=== PATIENT | male | born 1955 | race Caucasian/White ===

== ENCOUNTER → 2017-01-01 | Outpatient (CLI) | payer BC ==
--- NOTE | 2017-01-01 11:02 | RAD ---
EXAM DESCRIPTION: Hand,Right 3 Views CLINICAL HISTORY: 61 years Male, PAIN COMPARISON: None. FINDINGS: 3 views of the right hand show a tiny calcification along the dorsal aspect of the third DIP joint which is seen only on the lateral view but does not appear acute. No acute fracture or malalignment is seen. There is joint space narrowing and productive change involving several interphalangeal joints, slightly worse at the second DIP joint. No radiopaque foreign body or soft tissue gas. IMPRESSION: Mild to moderate polyarticular degenerative change, but no acute right hand abnormality. Electronically signed by: Jayden Nolasco MD 01/01/2017 11:01 AM CDT Workstation: [facility]
== END | disposition home or self-care (01) ==
LOC: RAD 09:09
PROVIDERS: ATTEND Orthopaedic Surgery
DX: M79.641 Pain in right hand (principal)

== ENCOUNTER → 2017-01-09 | Outpatient (CLI) | payer BC | END | disposition home or self-care (01) | LOC: GMAB 10:37 | PROVIDERS: ATTEND Family Medicine | DX: Z00.00 Encounter for general adult medical examination without abnormal findings (principal); G45.9 Transient cerebral ischemic attack, unspecified ==

== ENCOUNTER → 2017-05-06 | Outpatient (CLI) | payer BC | END | disposition home or self-care (01) | LOC: GMAB 17:51 | PROVIDERS: ATTEND Family Medicine | DX: R30.0 Dysuria (principal) ==

== ENCOUNTER → 2017-09-17 | Outpatient (CLI) | payer BC | LOC: GMAB 16:41 | PROVIDERS: ATTEND Family Medicine | DX: R12 Heartburn (principal) ==

== ENCOUNTER → 2017-09-20 | Outpatient (CLI) | payer BC, OTHER ==
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
== END ==
LOC: MRI 08:00
PROVIDERS: ATTEND Family Medicine
DX: R12 Heartburn (principal); R51 Headache

== ENCOUNTER → 2018-10-02 | Outpatient (CLI) | payer BC | LOC: GMAE 16:45 | PROVIDERS: ATTEND Family Medicine | DX: R53.82 Chronic fatigue, unspecified (principal) ==

== ENCOUNTER → 2018-10-29 | Outpatient (CLI) | payer BC ==
--- NOTE | 2018-10-29 11:33 | US ---
EXAM DESCRIPTION: Venous,Lower Extremity LT: ULTRASOUND. CLINICAL HISTORY: LOCALIZED EDEMA. Left lower extremity. COMPARISON: None Available. TECHNIQUE: Hart-scale and doppler sonographic evaluation of the deep venous system of the left lower extremity. FINDINGS: Doppler evaluation shows normal color flow and normal phasicity and augmentation of the left common femoral vein, femoral vein, popliteal vein, peroneal, and posterior tibial vein. The left lower extremity deep veins were completely compressible; normal occlusion with transducer pressure. Hart-scale survey showed no echogenic thrombus within these veins. The superficial left greater saphenous vein contains echogenic clot from the mid aspect of the knee with clot also seen in the superficial lesser saphenous vein from the knee to the ankle. Decreased venous waveforms and the veins were not compressible with the transducer. IMPRESSION: 1. Duplex ultrasound evaluation of the left lower extremity deep venous system showing no evidence of thrombosis. 2. Thrombosis from the superficial mid left greater saphenous vein through the superficial left lesser saphenous vein to the ankle. This is usually not clinically significant. CRITICAL COMMUNICATION: The findings were discussed directly by phone, by Ms. Cheryle Lundy, primary care nurse, with Dr. Corley's medical sales associate, Gauri, at approximately 1110 hours, on October 29, 2018. Electronically signed by: Sarbjit Gupta MD 10/29/2018 11:29 AM CDT
== END ==
LOC: US 10:12
PROVIDERS: ATTEND Family Medicine
DX: I82.812 Embolism and thrombosis of superficial veins of left lower extremity (principal)

== ENCOUNTER → 2018-11-13 | Outpatient (CLI) | payer BC | LOC: SL 19:27 | PROVIDERS: ATTEND Family Medicine | DX: G47.33 Obstructive sleep apnea (adult) (pediatric) (principal) ==

== ENCOUNTER → 2018-11-27 | Outpatient (CLI) | payer BC | LOC: GMAE 11:56 | PROVIDERS: ATTEND Family Medicine | DX: I10 Essential (primary) hypertension (principal); E11.9 Type 2 diabetes mellitus without complications; E78.2 Mixed hyperlipidemia ==

== ENCOUNTER → 2018-12-15 | Outpatient (CLI) | payer BC ==
--- NOTE | 2018-12-15 09:21 | US ---
EXAM DESCRIPTION: Venous,Lower Extremity LT: ULTRASOUND. CLINICAL HISTORY: EMBOLISM AD THROMBOSIS OF SUPERFICIAL VEINS OF LEFT LOWER EXTREMITY COMPARISON: None Available. TECHNIQUE: Hart-scale and doppler sonographic evaluation of the deep venous system of the left lower extremity. FINDINGS: Doppler evaluation shows normal color flow and normal phasicity and augmentation of the left common femoral vein, femoral vein, popliteal vein, greater saphenous vein, peroneal, and posterior tibial vein. The left lower extremity deep veins were completely compressible; normal occlusion with transducer pressure. Hart-scale survey showed no echogenic thrombus within these veins. Partial thrombus in a left mid calf superficial vein, inferior saphenous below the knee, with echogenicity in the lumen, no color flow, reduced waveform, and incomplete compressibility. IMPRESSION: 1. Duplex ultrasound evaluation of the left lower extremity deep venous system showing no evidence of thrombosis. 2. Partial thrombosis in the left lesser saphenous vein below the knee. Reduced venous waveform is noted with partial compressibility. CRITICAL COMMUNICATION: The critical value was discussed directly by phone with Dr. Adrián Corley at approximately 0915 hours, on December 15, 2018. Electronically signed by: Sarbjit Gupta MD 12/15/2018 9:19 AM CDT
== END ==
LOC: US 08:07
PROVIDERS: ATTEND Family Medicine
DX: I82.812 Embolism and thrombosis of superficial veins of left lower extremity (principal)

== ENCOUNTER → 2019-02-02 | Outpatient (CLI) | payer BC ==
--- NOTE | 2019-02-02 17:09 | MRI ---
EXAM DESCRIPTION: Thoracic Spine w/o Contrast: Magnetic Resonance Imaging. CLINICAL HISTORY: THORACIC RADICULOPATHY COMPARISON: None. TECHNIQUE: Multiplanar, multiple standard sequences, non contrast MRI, thoracic spine. FINDINGS: T3-T4 disc show slight desiccation. No bulging. Disc spaces are maintained. Facets are negative. Canal and foramina are unremarkable. Remaining discs with normal signal. Disc spaces are preserved. Canal and foramina are patent. No scoliosis. Facet joints are unremarkable. Posterior bulge of the C6-C7 disc but no cord compression. Conus terminates just below the T12-L1 disc space.. Cord with normal signal, no compression. Anterior hypertrophic endplate changes mostly in the lower segments to the right of midline. Paravertebral soft tissues are unremarkable. Normal marrow signal in the remaining vertebral bodies and the posterior elements. Vertebral bodies are not compressed at any level. IMPRESSION: 1. Mild desiccation of the T3-T4 disc with no significant bulge. Canal and foramina are patent. 2. Posterior bulge of the C6-C7 disc but no cord compression. If cervical radiculopathy is present, consider MRI scan of the cervical spine. Electronically signed by: Sarbjit Gupta MD 02/02/2019 5:07 PM CDT
== END ==
LOC: MRI 13:10
PROVIDERS: ATTEND Physician Assistant Medical
DX: M51.14 Intervertebral disc disorders with radiculopathy, thoracic region (principal); M50.923 Unspecified cervical disc disorder at C6-C7 level

== ENCOUNTER → 2020-04-14 | Outpatient (CLI) | payer MEDICARE, OTHER | LOC: YCFC.O 08:19 | PROVIDERS: ATTEND Family Medicine | DX: E11.9 Type 2 diabetes mellitus without complications (principal); I10 Essential (primary) hypertension; E78.5 Hyperlipidemia, unspecified; R53.83 Other fatigue; Z12.5 Encounter for screening for malignant neoplasm of prostate; E53.8 Deficiency of other specified B group vitamins; D64.9 Anemia, unspecified | CPT/HCPCS: 36415; 80053; 80061; 81001; 82607; 82728; 83036; 83540; 83550; 84443; 85025; G0103 ==

== ENCOUNTER → 2020-06-15 | Outpatient (CLI) | payer MEDICARE, OTHER | LOC: LAB.NP 13:54 | PROVIDERS: ATTEND Surgery | DX: Z85.820 Personal history of malignant melanoma of skin (principal); Z98.890 Other specified postprocedural states ==

== ENCOUNTER → 2020-07-12 | Outpatient (CLI) | payer MEDICARE, OTHER | LOC: YCFC.O 13:39 | PROVIDERS: ATTEND Family Medicine | DX: E11.9 Type 2 diabetes mellitus without complications (principal); R31.9 Hematuria, unspecified ==